=== PATIENT | female | born 1940 | race Asian ===

== ENCOUNTER 2023-06-08 21:19 | Emergency (ER) | payer MEDICARE ==
[~2023-06-08] VITALS: Ht 160 cm; Wt 52.7 kg
[2023-06-08 21:23] VITALS: TEMP 97.8
[2023-06-08] MEDS ORDERED: Home HYDROcodone/Acetaminophen 5/325 MG #4 TABS/PACK PO ONE (22:30)
[2023-06-08 23:13] VITALS: BP 148/77; PULSE 78
== END 2023-06-08 23:49 | disposition home or self-care (01) ==
LOC: COL.ER 21:19
DX: S00.83XA Contusion of other part of head, initial encounter (principal); S60.222A Contusion of left hand, initial encounter; W01.198A Fall on same level from slipping, tripping and stumbling with subsequent striking against other object, initial encounter